=== PATIENT | male | born 1945 ===

== ENCOUNTER 2017-05-06 06:15 | Inpatient (IN) | payer MEDICARE, OTHER ==
[2017-05-02 14:06] VITALS: BMI 27.4
[2017-05-06] MEDS ORDERED: Propofol 10 mg/ml Inj (20 ML) ONE (07:30)
[2017-05-06] MEDS ORDERED: Midazolam 2 MG/2 ML VIAL ONE (07:30)
[2017-05-06] MEDS ORDERED: cefTRIAXone IV 1 gm in Dextros 50 ML IVPB ONE (07:30)
[2017-05-06] MEDS ORDERED: Lactated Ringer's 1,000 ML IV ONE ×2 (07:32→08:16)
[2017-05-06] MEDS ORDERED: Rocuronium 10 mg/ml (10 ml) ONE (08:25)
[2017-05-06] MEDS ORDERED: Oxycodone/Acetaminophen 5/325 mg Tab PO PRN (08:58)
--- NOTE | 2017-05-06 09:03 | PCM.SURG1 ---
Surgeon's Initial Post Op Note - Surgeon's Notes Surgeon: sallie francis [employer] Fish Butcher: none Type of Anesthesia: General Endo Pre-Operative Diagnosis: bph Operative Findings: same Post-Operative Diagnosis: same Operation Performed: turp Specimen/Specimens Removed: urine. prostate Estimated Blood Loss: EBL {In ML}: 150 Blood Products Given: N/A Post-Op Condition: Good Date of Surgery/Procedure: 05/06/17 Time of Surgery/Procedure: 08:50
[2017-05-06] MEDS: Potassium Ch 20mEq in D5-1/2NS 1,000 ML IV SCH ×3 (12:08→22:18)
--- NOTE | 2017-05-06 22:03 | OP ---
PROCEDURE DATE: 05/06/2017 PREOPERATIVE DIAGNOSES: Prostatic enlargement. Bladder outlet obstruction. POSTOPERATIVE DIAGNOSES: Prostatic enlargement. Bladder outlet obstruction. PROCEDURE: Transurethral resection of the prostate. SURGEON: Poppy Hankins MD DESCRIPTION OF PROCEDURE: The patient received perioperative antibiotics. The patient was placed in lithotomy position. The genitalia were prepped and draped sterilely. General anesthesia was administered by the anesthesiologist. A 26-Kiswahili continuous-flow resectoscope sheath was introduced under direct vision with a visual obturator. Procedure was performed under video endoscopic control. The urethra, prostate, and bladder were inspected with 30-degree lens. FINDINGS: The prostatic urethra was occlusive. There was trilobar prostatic hypertrophy. There was predominantly lateral lobe hypertrophy. There was small intravesical middle lobe. Bladder was noted to be mildly speculated. There was no bladder tumor, there was no bladder stone. The resectoscope was inserted. The prostatic resection was performed as follows. The middle lobe was resected on the floor. Thereafter, the anterior roof tissue was resected. Subsequently, the right lateral lobe and thereafter the left lateral lobe was resected. Finally, the floor and apical prostatic tissues were resected with the surgeon's index finger within the O'Elvin drape in the rectum. Hemostasis was achieved after each section of the resection. The prostatic chips were removed using the [employer] evacuator. The resectoscope was reinserted. Hemostasis was completed. The ureteral orifices were intact. There were no residual prostatic chips. A Zimmerman catheter was inserted. Bladder irrigation was clear with mild traction applied. The patient was returned to the supine position. The patient tolerated the procedure without complication. Poppy Hankins MD
--- NOTE | 2017-05-06 22:43 | CP.PCM.CON ---
<Britton Hill - Last Filed: 05/06/17 22:31> History of Present Illness - History of Present Illness History of Present Illness: Medicine Consult Note for Hospitalist Service Reason for consult: Medical Management This is a 71 year old male with PMHx BPH, HTN, HLD, cataracts who presented to the hospital for TURP earlier this morning. Hospitalist service consulted for medical management. Patient is currently undergoing continuous bladder irrigation. Patient had difficulty with urination due to enlarged prostate obstructing his ureter and failed outpatient treatment with Flomax. The decision was made to stop the medication and proceed with the TURP. Patient currently has no acute symptoms and is resting comfortably. Patient denies subjective fever, chills, headache, dizziness, chest pain, SOB, abdominal pain. PMHx: BPH, HTN, HLD PSHx: Bilateral cataract surgery. Left ear surgery on tympanic bones 5 years ago (chronic tinnitus since then) Allergies: NKDA Social Hx: Former drinker quit 4 years ago. Former marijuana smoker during [place]. Denies ever using tobacco products. Family Hx: Mother with lupus Home Meds: Atenolol 50 mg PO daily Amlodipine/Benzapril 10/20 mg PO daily Lipitor 20 mg PO daily Xanax 1 mg PO TID (for tinnitus. has recently started cutting pill in half. currently using 0.5 mg TID) PMD: Dr. Grant Ann Urologist: Dr. Poppy Hankins Review of Systems - Constitutional Constitutional: absent: Chills, Fever - EENT Eyes: absent: Change in Vision Ears: Decreased Hearing (chronic on left ear) - Cardiovascular Cardiovascular: absent: Chest Pain, Palpitations - Respiratory Respiratory: absent: Cough, Dyspnea, Wheezing - Gastrointestinal Gastrointestinal: absent: Abdominal Pain, Constipation, Diarrhea, Nausea, Vomiting - Genitourinary Genitourinary: Hematuria - Neurological Neurological: absent: Dizziness, Numbness, Headaches, Tingling - Endocrine Endocrine: absent: Palpitations Past Patient History - Past Medical History & Family History Past Medical History?: Yes - Past Social History Smoking Status: Never Smoked - CARDIAC Hx Hypercholesterolemia: Yes Hx Hypertension: Yes - PULMONARY Hx Respiratory Disorders: No - NEUROLOGICAL Hx Neurological Disorder: No - HEENT Hx HEENT Problems: Yes Hx Cataracts: Yes (BILATERAL IOL) Hx Deafness: Yes (BILATERAL HEARING AIDES) - RENAL Hx Chronic Kidney Disease: No - ENDOCRINE/METABOLIC Hx Endocrine Disorders: No - HEMATOLOGICAL/ONCOLOGICAL Hx Blood Disorders: No - INTEGUMENTARY Hx Dermatological Problems: No - MUSCULOSKELETAL/RHEUMATOLOGICAL Hx Musculoskeletal Disorders: No Hx Falls: No - GASTROINTESTINAL Hx Gastrointestinal Disorders: No - GENITOURINARY/GYNECOLOGICAL Hx Genitourinary Disorders: Yes Hx Prostate Problems: Yes (BPH) - PSYCHIATRIC Hx 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) Hx Substance Use: No - SURGICAL HISTORY Hx Surgeries: Yes Hx Cataract Extraction: Yes (BILATERAL IOLI) Other/Comment: EAR SURGERY - ANESTHESIA Hx Anesthesia: Yes Hx Anesthesia Reactions: No Hx Malignant Hyperthermia: No Has any member of the family had a problem w/ anesthesia?: (UNKNOWN) Meds Allergies/Adverse Reactions: Allergies Allergy/AdvReac Type Severity Reaction Status Date / Time No Known Allergies Allergy Verified 05/02/17 14:06 - Medications Medications: Current Medications Alprazolam (Xanax) 1 mg PO TID PRN PRN Reason: Anxiety Amlodipine Besylate (Norvasc) 10 mg PO DAILY [facility] Atenolol (Tenormin) 50 mg PO [facility] Last Admin: 05/06/17 21:11 Dose: 50 mg Docusate Sodium (Colace) 100 mg PO TID [facility] Last Admin: 05/06/17 18:13 Dose: Not Given Ceftriaxone Sodium (Rocephin Iv 1 Gm Duplex) 50 mls @ 100 mls/hr IVPB Q24H [facility] Potassium Chloride/Dextrose/Sod Cl (Potassium Chl 20 Meq In D5-1/2ns) 1,000 mls @ 100 mls/hr IV .Q10H [facility] Last Admin: 05/06/17 22:18 Dose: 100 mls/hr Oxycodone/Acetaminophen (Percocet 5/325 Mg Tab) 1 tab PO Q4H PRN PRN Reason: Pain, moderate (4-7) Stop: 05/09/17 08:59 Rosuvastatin Calcium (Crestor) 10 mg PO [facility] Last Admin: 05/06/17 21:11 Dose: 10 mg Physical Exam - Constitutional Appears: No Acute Distress - Head Exam Head Exam: ATRAUMATIC, NORMAL INSPECTION, NORMOCEPHALIC - Eye Exam Eye Exam: EOMI, PERRL - ENT Exam ENT Exam: Mucous Membranes Moist - Respiratory Exam Respiratory Exam: Clear to Auscultation Bilateral. absent: Rales, Rhonchi, Wheezes - Cardiovascular Exam Cardiovascular Exam: REGULAR RHYTHM, +S1, +S2 - GI/Abdominal Exam GI & Abdominal Exam: Normal Bowel Sounds, Soft. absent: Tenderness - Exam Additional comments: Triple lumen christianson in place. Draining serosanguinous fluid. - Extremities Exam Extremities exam: Negative for: pedal edema, tenderness - Neurological Exam Neurological exam: Alert, CN II-XII Intact, Oriented x3 - Skin Skin Exam: Dry, Intact, Normal Color, Warm Results - Vital Signs Recent Vital Signs: Last Vital Signs Temp 97.9 F 05/06/17 15:13 Pulse 78 05/06/17 15:13 Resp 20 05/06/17 15:13 BP 118/60 05/06/17 15:13 Pulse Ox 97 05/06/17 15:13 Assessment & Plan - Assessment and Plan (Free Text) Plan: History of Benign Prostatic Hyperplasia Patient underwent TURP on 05/06 and currently undergoing continuous bowel irrigation Management per Dr. Hankins History of Hypertension Atenolol 50 mg PO daily Amlodipine 10 mg PO daily We don't have home med Benzapril on formulary. Will reconsider whether or not to start an JAMAR inhibitor on him in the future during his hospital stay. History of Hyperlipidemia Convert Lipitor 20 to formulary--Crestor 10 mg PO HS History of chronic tinnitus Patient's home Xanax is on board Prophylactic Measure DVT ppx per primary SCDs for now since post op Pain management and antibiotic coverage per primary Case DW Dr. Valente Hill PGY-1 - Date & Time Date: 05/06/17 Time: 10:30 <Alvaro Victor P - Last Filed: 05/09/17 07:34> Results - Vital Signs Recent Vital Signs: Last Vital Signs Temp 98.4 F 05/08/17 08:00 Pulse 64 05/08/17 08:00 Resp 20 05/08/17 08:00 BP 124/73 05/08/17 08:00 Pulse Ox 99 05/08/17 08:00 - Labs Result Diagrams: 05/08/17 07:51 05/08/17 07:51 Labs: Laboratory Results - last 24 hr 05/08/17 05/08/17 07:51 07:51 WBC 10.3 RBC 4.54 Hgb 13.8 Hct 41.1 MCV 90.4 MCH 30.5 MCHC 33.7 RDW 13.6 Plt Count 159 MPV 9.6 Sodium 141 Potassium 4.7 Chloride 99 Carbon Dioxide 28 Anion Gap 20 BUN 16 Creatinine 1.0 Est GFR ( Amer) > 60 Est GFR (Non-Af Amer) > 60 Random Glucose 103 Calcium 9.9 Attending/Attestation - Attestation I have personally seen and examined this patient.: Yes I have fully participated in the care of the patient.: Yes I have reviewed all pertinent clinical information: Yes Notes (Text): 71 M with h/o BPH s/p turp, admitted post op for hematuria, getting continuous bladder irrigation, medical history of htn, tinnitis, blood pressure meds will be gradually increased to his daily doses, current bp is stable.
[2017-05-07] MEDS: cefTRIAXone IV 1 gm in Dextros 50 ML IVPB SCH (05:59)
[2017-05-07 06:24] LABS: HEMATOCRIT 41.6 % (35.0-51.0); MEAN CELL VOLUME 90.5 fL (80.0-94.0); MEAN CORPUSCULAR HEMOGLOBIN 30.9 pg (27.0-31.0); MEAN CORPUSCULAR HGB CONC 34.1 g/dL (33.0-37.0); MEAN PLATELET VOLUME 9.1 fL (7.2-11.7); RED CELL DISTRIBUTION WIDTH 13.5 % (11.5-14.5); WHITE BLOOD COUNT 8.5 K/uL (4.8-10.8)
[2017-05-07 06:32] LABS: CHLORIDE 100 mmol/L (98-107); POTASSIUM 4.5 mmol/L (3.6-5.2); SODIUM 142 mmol/L (132-148)
[2017-05-07 06:35] LABS: BLOOD UREA NITROGEN 7 mg/dL (9-20); CARBON DIOXIDE 28 mmol/L (22-30); GFR AFRICAN-AMERICAN > 60; GLUCOSE,RANDOM 118 mg/dL (75-110)
[2017-05-07 06:36] LABS: CALCIUM 9.4 mg/dl (8.6-10.4)
--- NOTE | 2017-05-07 09:00 | CP.PCM.PN ---
Subjective - Date & Time of Evaluation Date of Evaluation: 05/07/17 Time of Evaluation: 08:30 - Subjective Subjective: Patient was seen and examined by me. He is status post TURP, he is currently getting CBI at this time. He reports feeling well. He denied pain, denied shortness of breath, denied palpitations, denied headache, denied abodominal pain, denied chest pain, denied fevers, denied chills. Per discussion with staff there were no acute events or acute problems overnight. There is a history of HTN and currently on medications. His BP is stable. Objective - Vital Signs/Intake and Output Vital Signs (last 24 hours): Temp Pulse Resp BP Pulse Ox 97.9 F 69 18 146/76 97 05/07/17 03:13 05/07/17 03:13 05/07/17 03:13 05/07/17 03:13 05/07/17 03:13 Intake and Output: 05/07/17 05/07/17 06:59 18:59 Intake Total 7750 7750 Output Total 42660 9780 Balance -3350 -2030 - Medications Medications: Current Medications Alprazolam (Xanax) 1 mg PO TID PRN PRN Reason: Anxiety Last Admin: 05/07/17 02:05 Dose: 1 mg Amlodipine Besylate (Norvasc) 10 mg PO DAILY [facility] Atenolol (Tenormin) 50 mg PO [facility] Last Admin: 05/06/17 21:11 Dose: 50 mg Docusate Sodium (Colace) 100 mg PO TID [facility] Last Admin: 05/06/17 18:13 Dose: Not Given Ceftriaxone Sodium (Rocephin Iv 1 Gm Duplex) 50 mls @ 100 mls/hr IVPB Q24H [facility] Last Admin: 05/07/17 05:59 Dose: 100 mls/hr Potassium Chloride/Dextrose/Sod Cl (Potassium Chl 20 Meq In D5-1/2ns) 1,000 mls @ 100 mls/hr IV .Q10H [facility] Last Admin: 05/06/17 22:18 Dose: 100 mls/hr Oxycodone/Acetaminophen (Percocet 5/325 Mg Tab) 1 tab PO Q4H PRN PRN Reason: Pain, moderate (4-7) Stop: 05/09/17 08:59 Rosuvastatin Calcium (Crestor) 10 mg PO [facility] Last Admin: 05/06/17 21:11 Dose: 10 mg - Labs Labs: 05/07/17 06:09 05/07/17 06:09 - Constitutional Appears: Well, Non-toxic, No Acute Distress - Head Exam Head Exam: NORMAL INSPECTION - Eye Exam Eye Exam: EOMI, Normal appearance - ENT Exam ENT Exam: Mucous Membranes Moist - Respiratory Exam Respiratory Exam: Clear to Ausculation Bilateral, Wheezes - Cardiovascular Exam Cardiovascular Exam: REGULAR RHYTHM - GI/Abdominal Exam GI & Abdominal Exam: Soft, Normal Bowel Sounds. absent: Distended, Firm, Guarding, Rigid, Tenderness - Exam Additional comments: Currently CBI, light sarosangionous color. No large clots - Neurological Exam Neurological Exam: Alert, Awake, Oriented x3 Neuro motor strength exam: Left Upper Extremity: 5, Right Upper Extremity: 5 - Psychiatric Exam Psychiatric exam: Normal Affect, Normal Mood - Skin Skin Exam: Normal Color, Warm Assessment and Plan - Assessment and Plan (Free Text) Assessment: History of Benign Prostatic Hyperplasia 05/07: S/P TURP on 05/06 and currently undergoing continuous bladder irrigation. He reports feeling well. No pain at this time. His repeat CBC and repeat CMP are both stable. While the patient is here continue to watch Hgb and Na as these can sometimes change with CBI He has an order for percocet for pain, but it did not have to be given. History of Hypertension 05/07: Currently BP is stable overnight. So can continue current medications: Atenolol 50 mg PO daily Amlodipine 10 mg PO daily History of Hyperlipidemia Crestor 10 QD History of chronic tinnitus Currently on Xanax Prophylactic Measure DVT ppx per primary SCDs for now since post op Pain management and antibiotic coverage per primary
[2017-05-07 15:51] VITALS: RESP 20
[2017-05-08 00:24] VITALS: TEMP 98.4
[2017-05-08] MEDS: cefTRIAXone IV 1 gm in Dextros 50 ML IVPB SCH (06:02)
[2017-05-08 08:00] LABS: HEMATOCRIT 41.1 % (35.0-51.0); MEAN CELL VOLUME 90.4 fL (80.0-94.0); MEAN CORPUSCULAR HEMOGLOBIN 30.5 pg (27.0-31.0); MEAN CORPUSCULAR HGB CONC 33.7 g/dL (33.0-37.0); MEAN PLATELET VOLUME 9.6 fL (7.2-11.7); RED CELL DISTRIBUTION WIDTH 13.6 % (11.5-14.5); WHITE BLOOD COUNT 10.3 K/uL (4.8-10.8)
[2017-05-08 08:21] LABS: CHLORIDE 99 mmol/L (98-107); POTASSIUM 4.7 mmol/L (3.6-5.2); SODIUM 141 mmol/L (132-148)
[2017-05-08 08:24] LABS: BLOOD UREA NITROGEN 16 mg/dL (9-20); CARBON DIOXIDE 28 mmol/L (22-30); GFR AFRICAN-AMERICAN > 60; GLUCOSE,RANDOM 103 mg/dL (75-110)
[2017-05-08 08:25] LABS: CALCIUM 9.9 mg/dl (8.6-10.4)
--- NOTE | 2017-05-08 08:47 | PCM.URO ---
Urology Progress Note - General General: No Complaints, Tolerating Diet - Subjective Abdominal Pain: No Flank Pain: No Nausea: No Vomiting: No Voiding Well: Yes (good stream) Hematuria: Yes (light pink) Good Stream: Yes Dsypnea: No Chest Pain: No Fever & Chills: No Other: Had BM. Catheter removed yesterday, due to inability to lack of drainage and inability to be irrigated - Objective Lab Studies: Reviewed Lab Results Last 24 Hours: Laboratory Results - last 24 hr 05/08/17 05/08/17 07:51 07:51 WBC 10.3 RBC 4.54 Hgb 13.8 Hct 41.1 MCV 90.4 MCH 30.5 MCHC 33.7 RDW 13.6 Plt Count 159 MPV 9.6 Sodium 141 Potassium 4.7 Chloride 99 Carbon Dioxide 28 Anion Gap 20 BUN 16 Creatinine 1.0 Est GFR ( Amer) > 60 Est GFR (Non-Af Amer) > 60 Random Glucose 103 Calcium 9.9 Intake & Output: Intake & Output 05/07/17 05/08/17 05/08/17 18:59 06:59 18:59 Intake Total 8350 1000 Output Total 9980 550 750 Balance -1630 450 -750 Intake: Intake, IV Amount 200 Left Antecubital 200 Oral 400 1000 Other 7750 Output: Urine 9980 550 750 3-way Urethral 200 100 Urine, Voided 450 750 Other: # Voids Urine, Voided 4 Vital Signs: Vital Signs - 24 hr 05/07/17 05/07/17 05/07/17 15:00 21:53 23:13 Temperature 98.3 F 98.4 F Pulse Rate 80 62 61 Respiratory 20 20 Rate Blood Pressure 135/70 125/61 124/58 L O2 Sat by Pulse 98 96 Oximetry - Physical Exam Abdominal Exam: Soft, Non-Tender, Non-Distended Bowel Sounds: Normal Back: No CVA Tenderness Genitalia: Without Inflammation Urine Color: [place] (light pink, almost clear) Extremities: Normal: Bilateral - Male Testes: Normal: Bilateral Epididymis: Normal: Bilateral - Plan Intake & Output: Yes See Orders: Yes Additional Information: imp: doing well, p turp. P: home today. outpt f/u. restricted activity. rx: levaquin, colace. discussed w pt, nursing staff, med staff - Date & Time of Note Date: 05/08/17 Time: 08:48
[2017-05-08 09:02] VITALS: BP 124/73; PULSE 64; O2SAT 99
--- NOTE | 2017-05-08 09:40 | CP.PCM.PN ---
<Sky Ayala - Last Filed: 05/08/17 09:34> Subjective - Date & Time of Evaluation Date of Evaluation: 05/08/17 Time of Evaluation: 09:00 - Subjective Subjective: PGY3 on medicine Dr. Quick service: Pt seen and examined at bedside this morning. Unable to re-insert christianson as per Dr. Hankins instruction yesterday after CBI was stopped. Pt was having pain and resistance during insertion. Attempt was stopped and christianson discontinued. Pt was able to void pink urine 400cc this morning by himself. Pt was feeling good and pressure was under controlled, cleared to go home from medicine standpoint. Pt said he has enough medication at home. Pt discharged today per Dr. Hankins with [facility] for 10 days. Thank you for the consult. Objective - Vital Signs/Intake and Output Vital Signs (last 24 hours): Temp Pulse Resp BP Pulse Ox 98.4 F 64 20 124/73 99 05/08/17 08:00 05/08/17 08:00 05/08/17 08:00 05/08/17 08:00 05/08/17 08:00 Intake and Output: 05/08/17 05/08/17 06:59 18:59 Intake Total 1000 Output Total 550 750 Balance 450 -750 - Medications Medications: Current Medications Alprazolam (Xanax) 1 mg PO TID PRN PRN Reason: Anxiety Last Admin: 05/07/17 10:15 Dose: 1 mg Amlodipine Besylate (Norvasc) 10 mg PO DAILY [facility] Last Admin: 05/07/17 21:54 Dose: 10 mg Atenolol (Tenormin) 50 mg PO HS [facility] Last Admin: 05/07/17 21:54 Dose: 50 mg Docusate Sodium (Colace) 100 mg PO TID [facility] Last Admin: 05/07/17 18:19 Dose: 100 mg Ceftriaxone Sodium (Rocephin Iv 1 Gm Duplex) 50 mls @ 100 mls/hr IVPB Q24H [facility] Last Admin: 05/08/17 06:02 Dose: 100 mls/hr Oxycodone/Acetaminophen (Percocet 5/325 Mg Tab) 1 tab PO Q4H PRN PRN Reason: Pain, moderate (4-7) Stop: 05/09/17 08:59 Last Admin: 05/07/17 18:19 Dose: 1 tab Rosuvastatin Calcium (Crestor) 10 mg PO HS [facility] Last Admin: 05/07/17 21:54 Dose: 10 mg - Labs Labs: 05/08/17 07:51 05/08/17 07:51 - Constitutional Appears: Non-toxic, No Acute Distress, Chronically Ill - Eye Exam Eye Exam: Normal appearance - ENT Exam ENT Exam: Mucous Membranes Moist - Respiratory Exam Respiratory Exam: Clear to Ausculation Bilateral, NORMAL BREATHING PATTERN. absent: Wheezes - Cardiovascular Exam Cardiovascular Exam: REGULAR RHYTHM, +S1, +S2. absent: Gallop, Rubs - GI/Abdominal Exam GI & Abdominal Exam: Soft, Normal Bowel Sounds. absent: Tenderness - Exam Additional comments: pink urine at bedside, 400cc - Neurological Exam Neurological Exam: Alert, Awake, Oriented x3 - Psychiatric Exam Psychiatric exam: Normal Mood - Skin Skin Exam: Intact Assessment and Plan - Assessment and Plan (Free Text) Assessment: History of Benign Prostatic Hyperplasia Cleared for discharge. F/U as per primary team. History of Hypertension Controlled. Continue home medication. History of Hyperlipidemia Continue Crestor 10 QD. History of chronic tinnitus Continue Xanax. <Han Quick - Last Filed: 05/08/17 10:22> Objective - Vital Signs/Intake and Output Vital Signs (last 24 hours): Temp Pulse Resp BP Pulse Ox 98.4 F 64 20 124/73 99 05/08/17 08:00 05/08/17 08:00 05/08/17 08:00 05/08/17 08:00 05/08/17 08:00 Intake and Output: 05/08/17 05/08/17 06:59 18:59 Intake Total 1000 Output Total 550 750 Balance 450 -750 - Medications Medications: Current Medications Alprazolam (Xanax) 1 mg PO TID PRN PRN Reason: Anxiety Last Admin: 05/07/17 10:15 Dose: 1 mg Amlodipine Besylate (Norvasc) 10 mg PO DAILY [facility] Last Admin: 05/08/17 09:50 Dose: 10 mg Atenolol (Tenormin) 50 mg PO [facility] Last Admin: 05/07/17 21:54 Dose: 50 mg Docusate Sodium (Colace) 100 mg PO TID [facility] Last Admin: 05/08/17 09:50 Dose: 100 mg Ceftriaxone Sodium (Rocephin Iv 1 Gm Duplex) 50 mls @ 100 mls/hr IVPB Q24H [facility] Last Admin: 05/08/17 06:02 Dose: 100 mls/hr Oxycodone/Acetaminophen (Percocet 5/325 Mg Tab) 1 tab PO Q4H PRN PRN Reason: Pain, moderate (4-7) Stop: 05/09/17 08:59 Last Admin: 05/07/17 18:19 Dose: 1 tab Rosuvastatin Calcium (Crestor) 10 mg PO HS [facility] Last Admin: 05/07/17 21:54 Dose: 10 mg - Labs Labs: 05/08/17 07:51 05/08/17 07:51 Attending/Attestation - Attestation I have personally seen and examined this patient.: Yes I have fully participated in the care of the patient.: Yes I have reviewed all pertinent clinical information, including history, physical exam and plan: Yes Notes (Text): 05/08/17 10:21 Medical attending: Patient was discharged earlier in the morning and I was not able to see him in time before he left. Nevertheless he was seen by the resident and he reportedly was able to urinate on his own and was feeling well this morning Han Quick
== END 2017-05-08 11:42 | disposition home or self-care (01) | DRG 713 ==
LOC: C.SDS 06:15 → C.9S 09:11 → C.6T 10:02
PROVIDERS: ADMIT Urology; ATTEND Urology
PROC: 0VB08ZZ Excision of Prostate, Via Natural or Artificial Opening Endoscopic (ICD-10-PCS; principal; 2017-05-06 07:45)
DX: N40.1 Benign prostatic hyperplasia with lower urinary tract symptoms (principal); N13.8 Other obstructive and reflux uropathy; I10 Essential (primary) hypertension; H91.90 Unspecified hearing loss, unspecified ear; E78.5 Hyperlipidemia, unspecified